=== PATIENT | female | born 1935 | race African-American/Black ===

== ENCOUNTER 2017-03-10 12:24 | Emergency (ER) | payer BC, MEDICARE ==
[~2017-03-10] VITALS: Ht 162.6 cm; Wt 65.0 kg
[~2017-03-10 12:24] MED LIST: AMIT25TA9 PO; AMLO2.5T PO; CYCL1TAB29 PO; FURO1TAB62 PO; GABA300C5 PO; HYDR-3366 PO; HYDR-3583 PO; ROBA500T PO; WALKER WHEELS/F1 MIS
[2017-03-10 12:27] VITALS: BP 159/89; PULSE 75; RESP 20; TEMP 98.1; O2SAT 97
--- NOTE | 2017-03-10 12:33 | PD ---
Physical Exam Time Seen by Provider: 12:32 Narrative 81yo F c/o left sided chest pain that radiates down left arm started last night. Denies SOB. Hx CHF. Patient seen in triage. VS reviewed. Awaiting bed placement. Data Data Last Documented VS Vital Signs Date Time Temp Pulse Resp B/P (MAP) Pulse Ox O2 Delivery O2 Flow Rate FiO2 03/10/17 12:27 98.1 75 20 159/89 (112) 97 Room Air MDM Supervised Visit with ANDRES: Mile Acuna Mar 10, 2017 12:33
[2017-03-10 12:41] VITALS: BP 153/77; PULSE 75; RESP 16; TEMP 98.9; O2SAT 99
[2017-03-10] MEDS ORDERED: SODIUM CHLORIDE 0.9% FLUSH 10 ML FLUSH IVF PRN (12:45)
[2017-03-10] MEDS ORDERED: MORPHINE SULFATE 4 MG/ML INJ IV PUSH ONE (12:45)
[2017-03-10 12:47] VITALS: O2SAT 99
--- NOTE | 2017-03-10 13:13 | PD ---
HPI . Chest pain Chief Complaint: Chest Pain Time Seen by Provider: 12:38 Travel History International Travel<30 days: No Contact w/Intl Traveler<30days: No Traveled to known affect area: No History of Present Illness HPI This patient presents with a chief complaint of chest pain. Onset was last night. She states that it is a "deep hurt" she rates as 8/10. Pain is exacerbated by movement and by palpation. Pain has been relieved by nitroglycerin. She states that she has taken 2 nitroglycerin with temporary relief. She took both of the not glycerin last night. She denies any associated shortness of breath, nausea, diaphoresis. She does complain of some mild dizziness. She states that she has not taken any aspirin for this because aspirin makes her bleed. PFSH Past Medical History Arthritis: Yes Asthma: No Autoimmune Disease: No Blood Disorders: No Heart Rhythm Problems: No Cancer: No Cardiovascular Problems: Yes High Cholesterol: No Chemotherapy: No Chest Pain: Yes Congestive Heart Failure: No COPD: No Cerebrovascular Accident: No Coronary Artery Disease: Yes Diabetes: No Diminished Hearing: No Endocrine: No Gastrointestinal Disorders: Yes GERD: Yes Glaucoma: No Genitourinary: No Headaches: No Hepatitis: No Hiatal Hernia: Yes Hypertension: Yes Immune Disorder: No Implanted Vascular Access Dvce: Yes Kidney Stones: No Musculoskeletal: Yes Neurologic: Yes Psychiatric: No Reproductive: Yes (PARTIAL HYSTERECTOMY) Respiratory: No Myocardial Infarction: No Radiation Therapy: No Renal Failure: No Seizures: No Sickle Cell Disease: No Sleep Apnea: No Thyroid Disease: No Ulcer: Yes Menopausal: Yes Past Surgical History Abdominal Surgery: Yes AICD: No Body Medical Devices: CARDIAC STENTS Cardiac Surgery: Yes (STENT X3 ) Ear Surgery: No Endocrine Surgery: No Eye Surgery: No Genitourinary Surgery: No Gynecologic Surgery: Yes (PARTIAL HYSTERECTOMY) Joint Replacement: No Oral Surgery: No Pacemaker: No Thoracic Surgery: No Other Surgery: Yes (BACK SURGERY) Social History Alcohol Use: No Tobacco Use: No Substance Use: No Allergies-Medications (Allergen,Severity, Reaction): Coded Allergies: penicillin G (Verified Allergy, Severe, Hives, 03/10/17) aspirin (Verified Adverse Reaction, Unknown, 03/10/17) Reported Meds & Prescriptions Reported Meds & Active Scripts Active Robaxin (Methocarbamol) 500 Mg Tab 500 Mg PO TID PRN Amitriptyline (Amitriptyline HCl) 25 Mg Tab 25 Mg PO HS Hydrocodone-Acetaminophen 10-325 mg Tab 1 Tab PO Q4H PRN Walker with Front Wheels (Device) 1 Mis Mis 1 Ea .ROUTE DIRECTED Gabapentin 300 Mg Cap 300 Mg PO TID Reported Lasix (Furosemide) 20 Mg Tab 20 Mg PO DAILY Flexeril (Cyclobenzaprine HCl) 10 Mg Tab 10 Mg PO TID Amlodipine (Amlodipine Besylate) 2.5 Mg Tab 2.5 Mg PO DAILY Holloway (Hydrocodone-Acetaminophen) 10-325 Mg Tab 1 Tab PO Q6H PRN Review of Systems Except as stated in HPI: all other systems reviewed are Neg General / Constitutional: No: Fever, Chills HENT: Positive: Lightheadedness Cardiovascular: Positive: Chest Pain or Discomfort Respiratory: No: Shortness of Breath Gastrointestinal: No: Nausea, Vomiting Physical Exam Narrative GENERAL: Awake and alert and in no acute distress. SKIN: Warm and dry. HEAD: Atraumatic. Normocephalic. EYES: Pupils equal and round. Extraocular movements are intact. ENT: No nasal bleeding or discharge. Mucous membranes pink and moist. NECK: Trachea midline. Neck is supple. CARDIOVASCULAR: Regular rate and rhythm. Heart sounds are normal. RESPIRATORY: No accessory muscle use. Lungs are clear with full air movement throughout. She does have left-sided chest wall tenderness. GASTROINTESTINAL: Abdomen soft, non-tender, nondistended. MUSCULOSKELETAL: No obvious deformities. No edema. NEUROLOGICAL: Awake and alert. No obvious cranial nerve deficits. Motor grossly within normal limits. Normal speech. PSYCHIATRIC: Appropriate mood and affect; insight and judgment normal. Data Data Last Documented VS Vital Signs Date Time Temp Pulse Resp B/P (MAP) Pulse Ox O2 Delivery O2 Flow Rate FiO2 03/10/17 12:47 99 Room Air 03/10/17 12:41 98.9 75 16 Orders Orders Electrocardiogram (03/10/17 12:44) Basic Metabolic Panel (Bmp) (03/10/17 12:44) Ckmb (Isoenzyme) Profile (03/10/17 12:44) Complete Blood Count With Diff (03/10/17 12:44) Magnesium (Mg) (03/10/17 12:44) Prothrombin Time / Inr (Pt) (03/10/17 12:44) Act Partial Throm Time (Ptt) (03/10/17 12:44) Troponin I (03/10/17 12:44) Chest, Single Ap (03/10/17 12:44) Ecg Monitoring (03/10/17 12:44) Iv Access Insert/Monitor (03/10/17 12:44) Oximetry (03/10/17 12:44) Morphine Inj (Morphine Inj) (03/10/17 12:45) Sodium Chloride 0.9% Flush (Ns Flush) (03/10/17 12:45) Labs Laboratory Tests Test 03/10/17 13:00 White Blood Count 3.9 TH/MM3 Red Blood Count 4.64 MIL/MM3 Hemoglobin 12.7 GM/DL Hematocrit 40.1 % Mean Corpuscular Volume 86.4 FL Mean Corpuscular Hemoglobin 27.3 PG Mean Corpuscular Hemoglobin Concent 31.6 % Red Cell Distribution Width 14.9 % Platelet Count 224 TH/MM3 Mean Platelet Volume 7.8 FL Neutrophils (%) (Auto) 52.6 % Lymphocytes (%) (Auto) 37.4 % Monocytes (%) (Auto) 7.4 % Eosinophils (%) (Auto) 1.9 % Basophils (%) (Auto) 0.7 % Neutrophils # (Auto) 2.1 TH/MM3 Lymphocytes # (Auto) 1.5 TH/MM3 Monocytes # (Auto) 0.3 TH/MM3 Eosinophils # (Auto) 0.1 TH/MM3 Basophils # (Auto) 0.0 TH/MM3 CBC Comment DIFF FINAL Differential Comment Prothrombin Time 10.5 SEC Prothromb Time International Ratio 1.0 RATIO Activated Partial Thromboplast Time 26.5 SEC Blood Urea Nitrogen 10 MG/DL Creatinine 0.60 MG/DL Random Glucose 86 MG/DL Calcium Level 9.0 MG/DL Magnesium Level 2.0 MG/DL Sodium Level 141 MEQ/L Potassium Level 3.4 MEQ/L Chloride Level 105 MEQ/L Carbon Dioxide Level 25.7 MEQ/L Anion Gap 10 MEQ/L Estimat Glomerular Filtration Rate 117 ML/MIN Total Creatine Kinase 87 U/L Troponin I LESS THAN 0.02 NG/ML Exceptions Acute Myocardial Infarction ASA Not Given on Arrival: Hx. Allergy/Adv. Reaction MDM Medical Decision Making Medical Screen Exam Complete: Yes Emergency Medical Condition: Yes Medical Record Reviewed: Yes (medical history is significant for coronary artery disease and degenerative disc disease. She has problems with both her neck and back.) Interpretation(s) EKG shows a normal sinus rhythm with no acute ischemic change. Differential Diagnosis Differential diagnosis of chest pain includes but is not limited to musculoskeletal pain, pulmonary embolism, acute coronary syndrome, pneumonia, pleurisy Narrative Course This patient presents with chest pain which started last night. Clinically, she has chest wall pain. She does have risk factors for coronary artery disease. A chest pain workup has been initiated. She cannot take aspirin because of bleeding. CBC & BMP Diagram 03/10/17 13:00 Calcium Level 9.0, Magnesium Level 2.0 Cardiac enzymes are negative. Last Impressions Chest X-Ray 03/10/17 1244 Signed Impressions: Service Date/Time: , March 10, 2017 13:06 - CONCLUSION: No acute disease. Rico Coronado MD The patient feels fine. She states she would like to go home. I believe that that is reasonable. Her symptoms were pretty clearly chest wall pain and her workup is negative. She has had pain since last night. A cardiac etiology for her symptoms is unlikely. Diagnosis Primary Impression: Atypical chest pain Scripts Hydrocodone-Acetaminophen (Holloway) 5-325 mg Tab 1 TAB PO Q4H Y for PAIN, #12 TAB 0 Refills Prov: Janeth Hernandez MD 03/10/17 Cyclobenzaprine (Flexeril) 10 Mg Tab 10 MG PO TID for Muscle Spasm, #90 TAB 0 Refills Prov: Janeth Hernandez MD 03/10/17 Disposition: 01 DISCHARGE HOME Condition: Stable Janeth Hernandez MD Mar 10, 2017 13:13
[2017-03-10 13:30] LABS: AUTOMATED NEUTROPHIL # 2.1 TH/MM3 (1.8-7.7); BASOPHIL % 0.7 % (0.0-2.0); EOSINOPHIL # 0.1 TH/MM3 (0-0.4); EOSINOPHIL % 1.9 % (0.0-4.0); HEMATOCRIT 40.1 % (35.0-46.0); HEMO FLAGS DIFF FINAL; LYMPH % 37.4 % (9.0-44.0); LYMPHOCYTE # 1.5 TH/MM3 (1.0-4.8); MEAN CELL VOLUME 86.4 FL (80.0-100.0); MEAN CORPUSCULAR HEMOGLOBIN 27.3 PG (27.0-34.0); MEAN CORPUSCULAR HGB CONC 31.6 % (32.0-36.0); MONO % 7.4 % (0.0-8.0); NEUT % 52.6 % (16.0-70.0); PLATELET COUNT 224 TH/MM3 (150-450); RED BLOOD COUNT 4.64 MIL/MM3 (4.00-5.30); RED CELL DISTRIBUTION WIDTH 14.9 % (11.6-17.2); WHITE BLOOD COUNT 3.9 TH/MM3 (4.0-11.0)
--- NOTE | 2017-03-10 13:35 | RADRPT ---
EXAM DATE/TIME: 03/10/2017 13:06 [facility] COMPARISON: CHEST SINGLE AP, October 05, 2014, 21:50. INDICATIONS : Chest pain since last night. MEDICAL HISTORY : Hypertension. Gastroesophageal reflux disease. Arthritis. CAD SURGICAL HISTORY : Fusion, lumbar. Stent placement ENCOUNTER: Initial ACUITY: 1 day PAIN SCORE: 7/10 LOCATION: Bilateral chest FINDINGS: A single view of the chest demonstrates the lungs to be symmetrically aerated without evidence of mas s, infiltrate or effusion. The cardiomediastinal contours are unremarkable. Osseous structures are intact. CONCLUSION: No acute disease. Rico Coronado MD on March 10, 2017 at 13:32 Board Certified Radiologist. This report was verified electronically.
[2017-03-10 13:50] LABS: APTT (PATIENT) 26.5 SEC (24.3-30.1); PROTHROMBIN TIME - PATIENT 10.5 SEC (9.8-11.6)
[2017-03-10 13:51] LABS: ANION GAP 10 MEQ/L (5-15); BICARBONATE 25.7 MEQ/L (21.0-32.0); BLOOD UREA NITROGEN 10 MG/DL (7-18); CHLORIDE 105 MEQ/L (98-107); GLOMERULAR FILTRATION RATE 117 ML/MIN (>89); POTASSIUM 3.4 MEQ/L (3.5-5.1); SODIUM (NA) 141 MEQ/L (136-145)
[2017-03-10 13:57] LABS: CREATINE KINASE 87 U/L (26-192)
[2017-03-10] MEDS ORDERED: CYCL1TAB29 PO (14:11)
[2017-03-10] MEDS ORDERED: NORC5TAB PO (14:11)
--- NOTE | 2017-03-12 01:20 | EKG ---
Date Performed: 03/10/2017 Time Performed: 13:19:58 PTAGE: 81 years EKG: Sinus rhythm NORMAL ECG PREVIOUS TRACING : 10/06/2014 03.28 Compared to prior tracing no significant change DOCTOR: Alexsander Vivas Interpretating Date/Time 03/12/2017 01:18:40
== END 2017-03-10 15:00 | disposition home or self-care (01) ==
LOC: NEPE 12:24
DX: R07.89 Other chest pain (principal); I25.10 Atherosclerotic heart disease of native coronary artery without angina pectoris; I10 Essential (primary) hypertension; Z95.5 Presence of coronary angioplasty implant and graft; K21.9 Gastro-esophageal reflux disease without esophagitis; M19.90 Unspecified osteoarthritis, unspecified site
CPT/HCPCS: 71010; 80048; 82550; 83735; 84484; 85025; 85610; 85730; 93005; 96374; 99285; J2270

== ENCOUNTER 2017-04-20 06:47 | Day surgery (SDC) | payer BC, MEDICARE ==
[~2017-04-20] VITALS: Ht 152.4 cm; Wt 68.0 kg
[~2017-04-20 06:47] MED LIST changes: +NORC5TAB PO
[2017-04-20] MEDS ORDERED: IOHEXOL 180 MG/ML 20 ML VIAL (for RAD DIAG) IT ONE (06:48)
[2017-04-20 07:09] VITALS: BP 157/107; PULSE 75; RESP 20; TEMP 98; O2SAT 96
[2017-04-20] MEDS ORDERED: LACTATED RINGER'S 1000 ML INJ 1,000 ML IV SCH (07:30)
[2017-04-20] MEDS ORDERED: DIAZEPAM 5 MG TAB PO SCH (07:30)
[2017-04-20] MEDS ORDERED: PLAV75TA29 PO (07:42)
[2017-04-20 07:59] LABS: APTT (PATIENT) 26.3 SEC (24.3-30.1); INTERNATIONAL NORMALIZED RATIO 0.9 RATIO; PROTHROMBIN TIME - PATIENT 10.2 SEC (9.8-11.6)
[2017-04-20 08:02] LABS: AUTOMATED NEUTROPHIL # 2.2 TH/MM3 (1.8-7.7); EOSINOPHIL # 0.1 TH/MM3 (0-0.4); EOSINOPHIL % 3.7 % (0.0-4.0); HEMATOCRIT 39.8 % (35.0-46.0); HEMO FLAGS DIFF FINAL; LYMPH % 32.6 % (9.0-44.0); LYMPHOCYTE # 1.3 TH/MM3 (1.0-4.8); MEAN CELL VOLUME 86.6 FL (80.0-100.0); MEAN CORPUSCULAR HEMOGLOBIN 28.2 PG (27.0-34.0); MEAN CORPUSCULAR HGB CONC 32.5 % (32.0-36.0); NEUT % 53.7 % (16.0-70.0); PLATELET COUNT 216 TH/MM3 (150-450); RED CELL DISTRIBUTION WIDTH 14.7 % (11.6-17.2); WHITE BLOOD COUNT 4.1 TH/MM3 (4.0-11.0)
[2017-04-20 08:05] LABS: BICARBONATE 30.6 MEQ/L (21.0-32.0); POTASSIUM 3.5 MEQ/L (3.5-5.1)
[2017-04-20 10:30] VITALS: BP 125/72; PULSE 86; RESP 16; TEMP 98.4; O2SAT 96
[2017-04-20 10:55] VITALS: BP 128/87; PULSE 70; RESP 20; TEMP 98.5; O2SAT 95
--- NOTE | 2017-04-20 12:10 | RADRPT ---
EXAM DATE/TIME: 04/20/2017 09:37 [facility] COMPARISON: No previous studies available for comparison. INDICATIONS : Patient presents with lower back pain in need of Lumbar Myelogram. MEDICAL HISTORY : Hypertension CAD GERD Headaches Joint pain Leg pain SURGICAL HISTORY : Hyterectomy ENCOUNTER: Initial ACUITY: 2 weeks PAIN SCORE: 9/10 LOCATION: Bilateral leg and lower flank. LUMBAR PUNCTURE TIME: 0948 hours FLUORO TIME: 5.5 minutes IMAGE SERIES: 2 CONTRAST: 20 cc Omnipaque (iohexol) 180 ACCESS LEVEL: L3-4 PROCEDURE : 1. Fluoroscopic guided lumbar puncture. 2. Lumbar myelogram. The risks, benefits and alternatives to the procedure were explained and verbal and written consent w as obtained. The site was prepped in sterile fashion. Full sterile technique was used, including ca p, mask, sterile gloves and gown and a large sterile sheet. Hand hygiene and 2% chlorhexidine and/or betadine/alcohol prep was utilized per protocol for cutaneous antisepsis. The skin and subcutaneous tissues were infiltrated with local anesthetic solution. With fluoroscopic guidance the lumbar thecal sac was punctured at level above and a diagnostic quanti ty of contrast is present in the subarachnoid space. Radiographs were obtained of the lumbar spine. The patient tolerated procedure well and there were no complications. CT scan is to be performed for further evaluation. CONCLUSION: Uncomplicated lumbar myelogram as above. CT scan is to be performed for further evaluation. Nate Gilliam MD on April 20, 2017 at 12:09 Board Certified Radiologist. This report was verified electronically.
--- NOTE | 2017-04-20 12:13 | PD.RAD ---
Post Procedure Progress Note Pre Procedure Diagnosis: (1) Lumbar canal stenosis Post Procedure Diagnosis: (1) Lumbar canal stenosis Procedure Date: Apr 20, 2017 Supervising Radiologist: Nate Gilliam Proceduralist/Assist: Rishabh Montaño RT(R), RT Mohan(R) Anesthesia: Local Plan of Activity Patient to Unit: [facility] Patient Condition: Good See PACS Report for procedural detail/treatment Spinal Procedure Myelogram L3-L4 Fluid Description: Nate Diaz MD Apr 20, 2017 12:13
[2017-04-20] MEDS ORDERED: ACETAMINOPHEN 325 MG TAB PO PRN (12:15)
[2017-04-20] MEDS ORDERED: oxyCODONE/ACETAMINOPHEN 5 MG/325 MG TAB PO PRN (12:15)
[2017-04-20] MEDS ORDERED: ONDANSETRON HCL 4 MG/2 ML VIAL IV PUSH PRN (12:15)
--- NOTE | 2017-04-20 13:10 | RADRPT ---
EXAM DATE/TIME: 04/20/2017 10:35 [facility] COMPARISON: No previous studies available for comparison. INDICATIONS : Post lumbar myelogram. RADIATION DOSE: 20.28 CTDIvol (mGy) MEDICAL HISTORY : Cardiovascular disease. Hypertension. SURGICAL HISTORY : Hysterectomy. ENCOUNTER: Initial ACUITY: 1 day PAIN SCALE: 6/10 LOCATION: lower back TECHNIQUE: Volumetric scanning of the lumbar spine was performed. Multiplanar reconstructions in the sagittal, coronal and oblique axial planes were performed. Using automated exposure control and adjustment of the mA and/or kV according to patient size, radiation dose was kept as low as reasonably achievable t o obtain optimal diagnostic quality images. DICOM format image data is available electronically for review and comparison. FINDINGS: VERTEBRAE: There is bilateral transpedicular posterior fixation with intervening bone graft device at L5-S1. Int erspinous device is seen at L4-L5. Vertebral body heights are maintained. ALIGNMENT: No evidence of subluxation. T12-L1: Disc space narrowing with vacuum disc phenomena and mild broad-based disc bulge. Central canal and ne ural foramina are patent. Facet joints are unremarkable. L1-L2: Disc space narrowing with vacuum disc phenomena and mild broad-based disc bulge. Central canal and ne ural foramina are patent. Facet joints are unremarkable. L2-L3: The thecal sac has a normal diameter. No evidence of disc bulge or protrusion. The neural foramina are patent bilaterally. L3-L4: No disc space narrowing. A minimal broad-based bulge. Mild ligamentum flavum hypertrophy of the facet s. Lateral recesses, central canal, and neural foramen are patent. L4-L5: Being hardening artifact from the orthopedic hardware obscures some of this level. There is preservat ion of the disc space height. A mild broad-based disc bulge. Moderate ligamentum flavum hypertrophy a nd bony hypertrophy of the facets. There is narrowing of the lateral recesses bilaterally. The centra l canal remains patent. Neural foramina are patent. L5-S1: This level is fused. Beam hardening artifact from the orthopedic hardware. Central canal, lateral rec esses, and neural foramen are patent. CONCLUSION: 1. Posterior fixation L5-S1 with interspinous device at L4-L5. 2. Mild degenerative changes without central canal stenosis or neural foraminal impingement. Each lev el detailed in the above discussion. Eusebio Negro Jr., MD on April 20, 2017 at 13:00 Board Certified Radiologist. This report was verified electronically.
== END 2017-04-20 14:00 | disposition home or self-care (01) ==
LOC: HRIP 06:47 → HROP 06:47
PROVIDERS: ATTEND Neurological Surgery
DX: M48.061 Spinal stenosis, lumbar region without neurogenic claudication (principal); M54.16 Radiculopathy, lumbar region; M53.3 Sacrococcygeal disorders, not elsewhere classified; I25.10 Atherosclerotic heart disease of native coronary artery without angina pectoris; I10 Essential (primary) hypertension; R51 Headache; M79.662 Pain in left lower leg; Z01.818 Encounter for other preprocedural examination
CPT/HCPCS: 62304; 72131; 80048; 85025; 85610; 85730; Q9965

== ENCOUNTER 2018-03-30 05:26 | Inpatient (IN) ==
[2018-03-30] MEDS ORDERED: Chlorhexidine Gluconate 2% 1 Pack (2 Cloths) TOPICAL ONE (06:00)
[2018-03-30] MEDS ORDERED: Metoprolol Tartrate 25 MG Tablet PO ONE (06:00)
[2018-03-30] MEDS ORDERED: Sodium Chlor 0.9% Inj 500 ML IV.CONT ONE (06:00)
[2018-03-30] MEDS ORDERED: Sod Chloride 0.9% Inj 1,000 ML IV.SIG SCH (06:15)
--- NOTE | 2018-03-30 06:16 | XR ---
EXAM DATE: 03/30/2018 6:12 AM EDT AGE/SEX: 82 years / Female INDICATIONS: Evaluate for pneumonia, pneumothorax, or communicable disease. Pre-op lumbar spine surg jimmy CLINICAL DATA: This is the patient's initial encounter. Patient reports that signs and symptoms have been present for 1 day and indicates a pain score of 0/10. MEDICAL/SURGICAL HISTORY: . Hypertension. Gastroesophageal reflux disease. Arthritis. CAD . F usion, lumbar. Stent placement. COMPARISON: [facility], XR CHEST PA AND LAT, 03/28/2018. . FINDINGS: A single AP view of the chest demonstrates the lungs to be symmetrically aerated without evidence of mass, infiltrate or effusion. The cardiomediastinal contours are unremarkable. Osseous structures a re intact. CONCLUSION: Stable chest with no acute disease Electronically signed by: Art Lopez MD 03/30/2018 6:14 AM EDT
[2018-03-30] MEDS ORDERED: Vancomycin Inj 1,000 MG in Sodium Chlor 0.9% Inj 250 ML IV.SIG SCH (07:00)
[2018-03-30] MEDS ORDERED: Thrombin Topical Soln 5,000 UNIT Vial TOPICAL ONE (08:34)
[2018-03-30] MEDS ORDERED: Gelatin Size 100 Topical Foam ONE (08:34)
[2018-03-30] MEDS ORDERED: Bupivacaine/Epinephrine 0.5% Inj 50 ML Vial ONE (08:40)
[2018-03-30] MEDS ORDERED: Morphine Inj 4 MG/ML Vial ONE (09:16)
[2018-03-30] MEDS ORDERED: fentaNYL Citrate Inj 250 MCG/5 ML Ampul ONE (09:16)
[2018-03-30] MEDS ORDERED: Levofloxacin 500 mg Premix Inj 500 MG/100 ML PIGGYBACK IV.SIG ONE (09:28)
[2018-03-30] MEDS ORDERED: Lidocaine PF 1% Inj 5 ML Syringe OTHER ONE (09:45)
[2018-03-30] MEDS ORDERED: Phenylephrine/NS 1000 MCG/10ML Syringe IV.PUSH ONE (09:45)
[2018-03-30] MEDS ORDERED: Glycopyrrolate Inj 1 MG/5 ML Syringe IV.PUSH ONE (09:45)
[2018-03-30] MEDS ORDERED: Neostigmine Inj 5 MG/5 ML Syringe IV.PUSH ONE (09:45)
[2018-03-30] MEDS ORDERED: methylPREDNISolone acetate 40 MG/ML VIAL ONE (10:36)
[2018-03-30] MEDS ORDERED: Sugammadex Inj 200 MG/2 ML Vial IV.PUSH ONE (11:47)
--- NOTE | 2018-03-30 12:00 | XR ---
EXAM DATE: 03/30/2018 11:57 AM EDT AGE/SEX: 82 years / Female INDICATIONS: L4-L5 lumbar laminectomy. Level localization. CLINICAL DATA: This is the patient's initial encounter. Patient reports that signs and symptoms have been present for 1 day and indicates a pain score of Nonresponsive. MEDICAL/SURGICAL HISTORY: Non-responsive. Fusion, lumbar. COMPARISON: No prior exams available for comparison. FINDINGS: A single lateral view of the lumbar spine was performed. Posterior cervical fusion hardware is noted at L5 and S1. Disc implant is noted at L5-S1. Surgical instruments are noted at L4-5 level posteriorl y. CONCLUSION: Surgical instruments are noted at L4-5 level posteriorly. Electronically signed by: Al Islas MD 03/30/2018 11:59 AM EDT
--- NOTE | 2018-03-30 12:18 | P.OP ---
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 Sequential compression devices were placed for DVT prophylaxis. She was then turned in prone position on Marcelo frame and the Ken table and all pressure points adequately padded. The lumbar region was then shaved and prepped with a Betadine and ChloraPrep. Sterile draping undertaken with Ioban. Midline incision overlying the L4-L5 level the previous incision site was then made after infiltrating the skin with 0.5% Marcaine with epinephrine solution. The skin incision was made extending down through the fascia and then using the subperiosteal plane on the left side the muscular attachments to the spinous process and lamina were detached. Intraoperative fluoroscopy was used for level confirmation and further dissection undertaken using microtechnique with microscope magnification. The L4-5 interspinous Coflex device was seen was secured in place as well as some hemilaminotomy noted. the inferior portion of the left L4 and superior portion of the L5 lamina was then drilled out and the underlying ligamentum flavum also removed. There was significant facet arthropathy noted as well as foraminal stenosis and the medial portion of left L4-5 facet was also resected and the lateral recess decompressed. Epidural venous stasis which he with the bipolar cautery along with Gelfoam and thrombin and bone wax used at the laminotomy edges for hemostasis. There was disc protrusion also leading to foraminal stenosis and partial discectomy also undertaken with the use of 15 blade and pituitary forceps until the foramen was well decompressed. Facet rhizotomy also undertaken with bipolar cauterization of the medial nerve branch of the left L4- 5 facet at the lateral aspect. The retractors removed and the muscle fascia proximal using 2-0 Vicryl interrupted stitches. 3-0 Vicryl subcuticular stitches were also placed in an interrupted fashion and planned skin closure was with Mastisol and Steri-Strips. A sterile dressing was then applied and the patient then turned in the supine position and extubated and taken to recovery room in stable condition. There were no intraoperative complications and all sponge and needle count was correct at the end of the procedure. Estimated blood loss about 50 cc.
[2018-03-30 13:21] VITALS: O2SAT 94
[2018-03-30 15:56] VITALS: BP 118/69; PULSE 84; RESP 16; TEMP 97.6
== END 2018-03-30 14:30 | disposition home or self-care (01) ==
LOC: HSDI 05:26
PROVIDERS: ADMIT Neurological Surgery; ATTEND Neurological Surgery